=== PATIENT | male | born 1985 | race Caucasian/White ===

== ENCOUNTER 2018-06-16 18:57 | Emergency (ER) | payer SELFPAY ==
[~2018-06-16] VITALS: Ht 180.3 cm; Wt 83.9 kg
[~2018-06-16 18:57] MED LIST: AMPH20TA2 PO; CHLR25C PO; CPR500T PO; CTLP20T PO; DEXT10TA9 PO; DIAZ10TA PO; FLUO20CA25 PO; GBPN600T PO; LORA0.5T34 PO; LORA1TAB PO; METH-290 PO; METH20CP9 PO; METR500T PO; MTHL5T PO; OMEG1CAP51 PO; ONDA-42 PO; OXYC10TA7 PO; PANT40TA2 PO; PRM25T PO; SUCR1TAB PO; SUCR1TAB36 PO; TRM50T PO; ZLP10T PO
[2018-06-16] MEDS ORDERED: FLUR30CA13 PO (19:14)
[2018-06-16] MEDS ORDERED: DEXT10TA9 PO (19:14)
[2018-06-16] MEDS ORDERED: BUPR100T7 PO (19:14)
[2018-06-16] MEDS ORDERED: CLON1TAB PO (19:14)
--- NOTE | 2018-06-16 19:32 | ED Psychosocial ---
General Chief Complaint: Detox Stated Complaint: ALCOHOL AND DRUG WITHDRAWL Nursing Triage Note: states flushed dalmane/klonipin down toilet today, wants detox. Source: patient Exam Limitations: no limitations History of Present Illness Date Seen by Provider: Jun 16, 2018 Time Seen by Provider: 19:28 Initial Comments To ER with reports of benzodiazepine withdrawal. States that he flushed his medications down the toilet today because he wants to detox. He just moved here from [place] where he is being prescribed Klonopin. He states that he was scheduled to take Klonopin 1mg twice a day but he was in fact taking upwards of 5-6 mg per day in addition to Dalmane 30 mg 3 times per day (prescribed only to take at bedtime). States that he does not regularly drink alcohol but he occasionally supplements with alcohol. His last use of the Dalmane and Klonopin was this morning. Last alcohol use was several days ago. Denies any other substance use. He is not suicidal or homicidal. Timing/Duration: constant Severity: moderate Associated Symptoms: anxiety Allergies and Home Medications Allergies Coded Allergies: diphenhydramine HCl (Verified Allergy, Severe, ANAPHYLAXIS, 10/25/12) hydroxyzine HCl (Verified Allergy, Severe, ANAPHYLAXIS, 10/25/12) hydroxyzine pamoate (Verified Allergy, Severe, ANAPHYLAXIS, 10/25/12) Penicillins (Unverified Allergy, Mild, SWELLING, 12/06/10) tramadol HCl (Unverified Allergy, Mild, RASH, 12/06/10) hydroxyzine (Unverified Allergy, Unknown, 05/19/15) ketorolac (Unverified Allergy, Unknown, 05/19/15) ketorolac tromethamine (Unverified Allergy, Unknown, 04/17/11) tramadol (Unverified Allergy, Unknown, 05/19/15) Patient Home Medication List Home Medication List Reviewed: Yes Review of Systems Constitutional: see HPI, malaise Respiratory: no symptoms reported Cardiovascular: no symptoms reported Genitourinary: no symptoms reported Musculoskeletal: no symptoms reported Skin: no symptoms reported Psychiatric/Neurological: See HPI, Anxiety Past Jqhrhph-Yhfvvo-Vhtpge Hx Patient Social History Alcohol Use: Occasionally Uses Number of Drinks Today: 1 Alcohol Beverage of Choice: Beer Recreational Drug Use: Yes Drug of Choice: klonipin, dalmane Smoking Status: Current Someday Smoker Type Used: Cigarettes 2nd Hand Smoke Exposure: Yes Recent Foreign Travel: No Contact w/Someone Who Travel: No Recent Infectious Disease Expo: No Recent Hopitalizations: No Immunizations Up To Date Tetanus Booster (TDap): Less than 5yrs PED Vaccines UTD: Yes Date of Pneumonia Vaccine: Dec 17, 2014 Date of Influenza Vaccine: Dec 17, 2014 Seasonal Allergies Seasonal Allergies: No Past Medical History Surgeries: Yes Abdominal, Appendectomy, Gallbladder Respiratory: No Cardiac: Yes (tachycardia) Neurological: No Reproductive Disorders: No Sexually Transmitted Disease: No HIV/AIDS: No Genitourinary: No Gastrointestinal: Yes (Gastritis) Gastroesophageal Reflux, Pancreatitis Musculoskeletal: No Endocrine: No HEENT: No Cancer: No Psychosocial: Yes ([place] , prior alcohol abuse) Anxiety, PTSD, Depression Integumentary: No Blood Disorders: No Adverse Reaction/Blood Tranf: No Family Medical History Diabetes mellitus G8 BROTHER No Pertinent Family Hx Physical Exam Vital Signs - First Documented 06/16/18 19:02 Temp 98.7 Pulse 129 Resp 20 B/P (MAP) 145/88 (107) Pulse Ox 99 O2 Delivery Room Air Capillary Refill : Less Than 3 Seconds Height, Weight, BMI Height: 5'11.00" Weight: 185lbs. 0oz. 83.404918as; 22.03 BMI Method:Stated General Appearance: WD/WN, no apparent distress, other (tachycardic. Cooperative.) HEENT: PERRL/EOMI, normal ENT inspection Neck: non-tender, full range of motion Respiratory: no respiratory distress, no accessory muscle use Cardiovascular: tachycardia Gastrointestinal: normal bowel sounds, non tender, soft Neurologic/Psychiatric: alert, normal mood/affect, oriented x 3 Appearance/Memory: appropriate appearance, appropriate insight Thoughts/Hallucinations: normal thought pattern, no apparent hallucination Skin: normal color, warm/dry Progress/Results/Core Measures Results/Orders Lab Results Laboratory Tests Test 06/16/18 19:15 06/16/18 19:20 Range/Units Urine Color YELLOW Urine Clarity CLEAR Urine pH 6 5-9 Urine Specific [place] 1.025 H 1.016-1.022 Urine Protein 1+ H NEGATIVE Urine Glucose (UA) NEGATIVE NEGATIVE Urine Ketones 1+ H NEGATIVE Urine Nitrite NEGATIVE NEGATIVE Urine Bilirubin NEGATIVE NEGATIVE Urine Urobilinogen NORMAL NORMAL MG/DL Urine Leukocyte Esterase NEGATIVE NEGATIVE Urine RBC (Auto) NEGATIVE NEGATIVE Urine RBC NONE /HPF Urine WBC RARE /HPF Urine Crystals NONE /LPF Urine Bacteria NEGATIVE /HPF Urine Casts NONE /LPF Urine Mucus SMALL H /LPF Urine Culture Indicated NO Urine Opiates Screen NEGATIVE NEGATIVE Urine Oxycodone Screen NEGATIVE NEGATIVE Urine Methadone Screen NEGATIVE NEGATIVE Urine Propoxyphene Screen NEGATIVE NEGATIVE Urine Barbiturates Screen NEGATIVE NEGATIVE Ur Tricyclic Antidepressants Screen NEGATIVE NEGATIVE Urine Phencyclidine Screen NEGATIVE NEGATIVE Urine Amphetamines Screen POSITIVE H NEGATIVE Urine Methamphetamines Screen NEGATIVE NEGATIVE Urine Benzodiazepines Screen POSITIVE H NEGATIVE Urine Cocaine Screen NEGATIVE NEGATIVE Urine Cannabinoids Screen POSITIVE H NEGATIVE White Blood Count 5.0 4.3-11.0 10^3/uL Red Blood Count 4.90 4.35-5.85 10^6/uL Hemoglobin 13.5 13.3-17.7 G/DL Hematocrit 40 40-54 % Mean Corpuscular Volume 82 80-99 FL Mean Corpuscular Hemoglobin 28 25-34 PG Mean Corpuscular Hemoglobin Concent 34 32-36 G/DL Red Cell Distribution Width 15.1 H 10.0-14.5 % Platelet Count 388 130-400 10^3/uL Mean Platelet Volume 9.0 7.4-10.4 FL Neutrophils (%) (Auto) 47 42-75 % Lymphocytes (%) (Auto) 34 12-44 % Monocytes (%) (Auto) 9 0-12 % Eosinophils (%) (Auto) 9 0-10 % Basophils (%) (Auto) 1 0-10 % Neutrophils # (Auto) 2.3 1.8-7.8 X 10^3 Lymphocytes # (Auto) 1.7 1.0-4.0 X 10^3 Monocytes # (Auto) 0.4 0.0-1.0 X 10^3 Eosinophils # (Auto) 0.4 H 0.0-0.3 10^3/uL Basophils # (Auto) 0.1 0.0-0.1 10^3/uL Sodium Level 144 135-145 MMOL/L Potassium Level 3.8 3.6-5.0 MMOL/L Chloride Level 109 H 98-107 MMOL/L Carbon Dioxide Level 20 L 21-32 MMOL/L Anion Gap 15 H 5-14 MMOL/L Blood Urea Nitrogen 9 7-18 MG/DL Creatinine 1.02 0.60-1.30 MG/DL Estimat Glomerular Filtration Rate > 60 BUN/Creatinine Ratio 9 Glucose Level 91 70-105 MG/DL Calcium Level 9.0 8.5-10.1 MG/DL Corrected Calcium 8.5-10.1 MG/DL Total Bilirubin 0.3 0.1-1.0 MG/DL Aspartate Amino Transf (AST/SGOT) 26 5-34 U/L Alanine Aminotransferase (ALT/SGPT) 32 0-55 U/L Alkaline Phosphatase 116 40-136 U/L Total Protein 8.1 6.4-8.2 GM/DL Albumin 4.9 H 3.2-4.5 GM/DL Acetaminophen Level < 10 L 10-30 UG/ML Serum Alcohol 122 H <10 MG/DL My Orders Orders - LEXIS HASTINGS APRN Cbc With Automated Diff (06/16/18 19:15) Ekg Tracing (06/16/18 19:15) Comprehensive Metabolic Panel (06/16/18 19:15) Ua Culture If Indicated (06/16/18 19:15) Drug Screen Stat (Urine) (06/16/18 19:15) Alcohol (06/16/18 19:38) Acetaminophen (06/16/18 19:38) Olanzapine Orally Dissolve Tab (Zyprexa (06/16/18 20:15) Diazepam Tablet (Valium Tablet) (06/16/18 20:30) Vital Signs/I&O 06/16/18 19:02 Temp 98.7 Pulse 129 Resp 20 B/P (MAP) 145/88 (107) Pulse Ox 99 O2 Delivery Room Air Blood Pressure Mean: 107 Departure Communication (Admissions) 1946-despite his report that he just moved here from [place], he has a number of encounters here in the emergency room, at least 10 of which are for alcoholism and substance abuse (since 2006). I do question the sincerity of his intent to quit given this information and whether he truly flushed his medications down the toilet this morning or simply ran out of them. I offered him non-benzodiazepine medications for his anxiety management such as Haldol or Zyprexa and he states he has an adverse reaction to both of those. He states that the only thing works is benzodiazepine. This makes me more suspicious of his intent to quit. He now states that he is suicidal and doesn't trust himself to go home without attempting to end his life. [facility] does have a mental health bed but it is unclear whether or not he will qualify for it with an elevated serum alcohol level. [facility] 2217- I spoke with Dr. Burger, psychiatrist at [facility] who has graciously accepted the patient, does recommend Valium 20 mg by mouth due to the tachycardia of 120s on arrival which may represent getting status of autonomic instability. However this time after a meal tray only, the patient has had a heart rate of 104 and blood pressure 120/89.. He's been cooperative Impression Primary Impression: Benzodiazepine withdrawal Qualified Codes: F13.230 - Sedative, hypnotic or anxiolytic dependence with withdrawal, uncomplicated Additional Impression: Suicidal ideation Disposition: 01 HOME, SELF-CARE Condition: Stable Departure-Patient Inst. Referrals: NO,LOCAL PHYSICIAN (PCP) Primary Care Physician DAVID SOLANO MD Copy Copies To 1: DAVID SOLANO MD, PETER J APRN Jun 16, 2018 19:32
[2018-06-16 19:36] LABS: BASOPHILS # (AUTO) 0.1 10^3/uL (0.0-0.1); BASOPHILS % (AUTO) 1 % (0-10); EOSINOPHILS # (AUTO) 0.4 10^3/uL (0.0-0.3); EOSINOPHILS % (AUTO) 9 % (0-10); HEMATOCRIT 40 % (40-54); HEMOGLOBIN 13.5 G/DL (13.3-17.7); LYMPHOCYTES # (AUTO) 1.7 X 10^3 (1.0-4.0); LYMPHOCYTES % (AUTO) 34 % (12-44); MEAN CORPUSCULAR HEMOGLOBIN 28 PG (25-34); MEAN CORPUSCULAR HGB CONC 34 G/DL (32-36); MEAN CORPUSCULAR VOLUME 82 FL (80-99); MONOCYTES # (AUTO) 0.4 X 10^3 (0.0-1.0); MONOCYTES % (AUTO) 9 % (0-12); NEUTROPHILS # (AUTO) 2.3 X 10^3 (1.8-7.8); NEUTROPHILS % (AUTO) 47 % (42-75); PLATELET COUNT 388 10^3/uL (130-400); RED CELL DISTRIBUTION WIDTH 15.1 % (10.0-14.5)
[2018-06-16 19:38] LABS: BILIRUBIN,URINE NEGATIVE (NEGATIVE); CLARITY,URINE CLEAR; COLOR,URINE YELLOW; GLUCOSE, URINE (UA) NEGATIVE (NEGATIVE); KETONES,URINE 1+ (NEGATIVE); LEUKOCYTE ESTERASE ,URINE NEGATIVE (NEGATIVE); NITRITE,URINE NEGATIVE (NEGATIVE); PH,URINE 6 (5-9); PROTEIN,URINE 1+ (NEGATIVE); UROBILINOGEN,URINE NORMAL (NORMAL)
[2018-06-16 19:46] LABS: BACTERIA,URINE NEGATIVE /HPF; WBC,URINE RARE /HPF
[2018-06-16 19:51] LABS: AMPHETAMINE SCREEN, URINE POSITIVE (NEGATIVE); BARBITURATE SCREEN URINE NEGATIVE (NEGATIVE); BENZODIAZEPINES SCREEN URINE POSITIVE (NEGATIVE); CANNABINOID SCREEN, URINE POSITIVE (NEGATIVE); COCAINE SCREEN URINE NEGATIVE (NEGATIVE); METHADONE STAT NEGATIVE (NEGATIVE); METHAMPHETAMINE SCREEN URINE S NEGATIVE (NEGATIVE); OPIATE SCREEN URINE NEGATIVE (NEGATIVE); OXYCODONE STAT NEGATIVE (NEGATIVE); PROPOXYPHENE STAT NEGATIVE (NEGATIVE); TRICYCLIC ANTIDEPRESSANTS SCRE NEGATIVE (NEGATIVE)
[2018-06-16 20:02] LABS: ALANINE AMINOTRANSFERASE 32 U/L (0-55); ALBUMIN 4.9 GM/DL (3.2-4.5); ALKALINE PHOSPHATASE 116 U/L (40-136); BILIRUBIN,TOTAL 0.3 MG/DL (0.1-1.0); BUN/CREATININE RATIO 9; CARBON DIOXIDE 20 MMOL/L (21-32); CHLORIDE 109 MMOL/L (98-107); CREATININE SERUM 1.02 MG/DL (0.60-1.30); GFR ESTIMATED > 60; GLUCOSE 91 MG/DL (70-105); POTASSIUM 3.8 MMOL/L (3.6-5.0); SODIUM 144 MMOL/L (135-145); TOTAL PROTEIN 8.1 GM/DL (6.4-8.2)
--- NOTE | 2018-06-16 20:10 | NUR ---
pt now states he feels suicidal. pt placed in gown, personal belongings removed from room.
[2018-06-16] MEDS ORDERED: OLANZapine 5 MG ODT (ZyPREXA ZYDIS) PO ONE (20:15)
[2018-06-16] MEDS ORDERED: DIAZEPAM 2 MG (VALIUM) TAB PO PRN (20:30)
[2018-06-16 20:32] LABS: ACETAMINOPHEN < 10 UG/ML (10-30)
[2018-06-16] MEDS ORDERED: DIAZEPAM 5 MG (VALIUM) TABLET PO SCH (22:30)
[2018-06-16 22:40] VITALS: BP 126/79
== END 2018-06-16 22:51 ==
LOC: EDUNIT# 18:57 → ER 18:59
DX: F13.230 Sedative, hypnotic or anxiolytic dependence with withdrawal, uncomplicated (principal); R45.851 Suicidal ideations; K21.9 Gastro-esophageal reflux disease without esophagitis; F41.9 Anxiety disorder, unspecified; F43.10 Post-traumatic stress disorder, unspecified; F32.9 Major depressive disorder, single episode, unspecified; F17.210 Nicotine dependence, cigarettes, uncomplicated; Z90.49 Acquired absence of other specified parts of digestive tract; Z90.89 Acquired absence of other organs; Z87.19 Personal history of other diseases of the digestive system; Z88.8 Allergy status to other drugs, medicaments and biological substances; Z88.0 Allergy status to penicillin; Z88.4 Allergy status to anesthetic agent; Z88.6 Allergy status to analgesic agent
CPT/HCPCS: 36415; 80053; 80306; 80320; 80329; 81000; 85025; 93005

== ENCOUNTER 2020-12-30 21:29 | Emergency (ER) | payer SELFPAY ==
[~2020-12-30] VITALS: Ht 180 cm; Wt 83.0 kg
[~2020-12-30 21:29] MED LIST changes: +BUPR100T7 PO; +CLON1TAB PO; +FLUR30CA13 PO
[2020-12-30 22:14] VITALS: BP 157/109
[2020-12-30 22:28] LABS: BILIRUBIN,URINE NEGATIVE (NEGATIVE); COLOR,URINE YELLOW; GLUCOSE, URINE (UA) NEGATIVE (NEGATIVE); KETONES,URINE NEGATIVE (NEGATIVE); LEUKOCYTE ESTERASE ,URINE NEGATIVE (NEGATIVE); NITRITE,URINE NEGATIVE (NEGATIVE); PROTEIN,URINE TRACE (NEGATIVE)
[2020-12-30] MEDS ORDERED: ONDANSETRON 4 MG/2 ML (SDV) Z0FRAN IVP ONE (22:30)
[2020-12-30] MEDS ORDERED: NS IV 1000 ML 1,000 ML IV SCH ×2 (22:30)
[2020-12-30] MEDS ORDERED: PANTOPRAZOLE 40 MG (PROTONIX) VIAL IV ONE (22:30)
[2020-12-30 22:32] LABS: BASOPHILS % (AUTO) 1 % (0-10); EOSINOPHILS # (AUTO) 0.5 10^3/uL (0.0-0.3); EOSINOPHILS % (AUTO) 8 % (0-10); HEMATOCRIT 35 % (40-54); HEMOGLOBIN 11.1 g/dL (13.3-17.7); LYMPHOCYTES # (AUTO) 2.3 10^3/uL (1.0-4.0); LYMPHOCYTES % (AUTO) 39 % (12-44); MEAN CORPUSCULAR HEMOGLOBIN 26 pg (25-34); MEAN CORPUSCULAR HGB CONC 32 g/dL (32-36); MEAN CORPUSCULAR VOLUME 81 fL (80-99); MEAN PLATELET VOLUME 8.9 fL (9.0-12.2); MONOCYTES # (AUTO) 0.6 10^3/uL (0.0-1.0); MONOCYTES % (AUTO) 11 % (0-12); NEUTROPHILS # (AUTO) 2.4 10^3/uL (1.8-7.8); NEUTROPHILS % (AUTO) 41 % (42-75); PLATELET COUNT 217 10^3/uL (130-400); WHITE BLOOD COUNT 5.9 10^3/uL (4.3-11.0)
[2020-12-30 22:34] LABS: BACTERIA,URINE NEGATIVE /HPF; CLARITY,URINE CLEAR; SQUAMOUS EPITHELIAL CELL,UR RARE /HPF
[2020-12-30 22:38] LABS: AMPHETAMINE SCREEN, URINE POSITIVE (NEGATIVE); BARBITURATE SCREEN URINE NEGATIVE (NEGATIVE); BENZODIAZEPINES SCREEN URINE POSITIVE (NEGATIVE); CANNABINOID SCREEN, URINE POSITIVE (NEGATIVE); COCAINE SCREEN URINE NEGATIVE (NEGATIVE); METHADONE STAT NEGATIVE (NEGATIVE); METHAMPHETAMINE SCREEN URINE S POSITIVE (NEGATIVE); OPIATE SCREEN URINE NEGATIVE (NEGATIVE); OXYCODONE STAT NEGATIVE (NEGATIVE); PROPOXYPHENE STAT NEGATIVE (NEGATIVE); TRICYCLIC ANTIDEPRESSANTS SCRE NEGATIVE (NEGATIVE)
[2020-12-30 22:43] LABS: ALBUMIN 4.7 GM/DL (3.2-4.5); CHLORIDE 109 MMOL/L (98-107); POTASSIUM 3.5 MMOL/L (3.6-5.0); SODIUM 144 MMOL/L (135-145)
[2020-12-30 22:44] LABS: AMYLASE 61 U/L (25-125); CALCIUM 8.9 MG/DL (8.5-10.1); INR 0.9 (0.8-1.4); PROTHROMBIN TIME PATIENT 12.9 SEC (12.2-14.7)
[2020-12-30 22:45] LABS: GLUCOSE 99 MG/DL (70-105)
[2020-12-30 22:46] LABS: CARBON DIOXIDE 17 MMOL/L (21-32); TOTAL PROTEIN 8.3 GM/DL (6.4-8.2)
[2020-12-30 22:47] LABS: BILIRUBIN,TOTAL 0.8 MG/DL (0.1-1.0)
[2020-12-30 22:49] LABS: ALKALINE PHOSPHATASE 123 U/L (40-136); CREATININE SERUM 0.91 MG/DL (0.60-1.30); GFR ESTIMATED 96
[2020-12-30 22:50] LABS: BUN/CREATININE RATIO 13
[2020-12-30 22:52] LABS: ALANINE AMINOTRANSFERASE 51 U/L (0-55); MAGNESIUM 2.2 MG/DL (1.6-2.4)
[2020-12-30 22:53] LABS: LIPASE 23 U/L (8-78)
[2020-12-30] MEDS ORDERED: NS 100 ML (IVPB) BAG IV ONE (23:45)
[2020-12-30] MEDS ORDERED: IOHEXOL 350 MG/ML 100 ML (OMNIPAQUE 350) VIAL IV ONE (23:45)
[2020-12-31] MEDS ORDERED: ONDANSETRON 4 MG/2 ML (SDV) Z0FRAN IVP ONE
--- NOTE | 2020-12-31 05:11 | Diagnostic Imaging Report ---
INDICATION: Abdominal pain Single PA view of the chest is obtained. COMPARISON: No previous study is available for comparison at this time. FINDINGS: Heart size and pulmonary vasculature are within normal limits, and the lungs are clear, bilaterally. IMPRESSION: Unremarkable chest. Dictated by: Dictated on workstation # [id number]
--- NOTE | 2020-12-31 05:17 | Diagnostic Imaging Report ---
PROCEDURE: CT abdomen and pelvis with contrast. TECHNIQUE: Multiple contiguous axial images were obtained through the abdomen and pelvis after administration of intravenous contrast. Auto Exposure Controls were utilized during the CT exam to meet ALARA standards for radiation dose reduction. All CT scans use one or more of the following dose optimizing techniques: automated exposure control, MA and/or KvP adjustment based on patient size and exam type or iterative reconstruction. INDICATION: Epigastric pain COMPARISON: 05/19/2015 There is mild low-density throughout the liver indicating steatosis. Gallbladder surgically absent without evidence of biliary ductal dilatation. There is no evidence of pancreatic, adrenal gland or splenic lesion and kidneys have a normal appearance, bilaterally. There is mild mural thickening within proximal small bowel which may represent enteritis. No free fluid is seen within the abdomen or pelvis and there is no evidence of pathologically enlarged adenopathy. Partially opacified urinary bladder is unremarkable in appearance. IMPRESSION: Mild mural thickening of proximal small bowel loops may reflect enteritis and clinical correlation is recommended. There is also hepatic steatosis in patient post cholecystectomy and appendectomy. Dictated by: Dictated on workstation # [id number]
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
== END 2020-12-31 00:20 | disposition left against medical advice (07) ==
LOC: EDUNIT# 21:29 → ER 21:35
DX: S05.11XA Contusion of eyeball and orbital tissues, right eye, initial encounter (principal); K92.0 Hematemesis; F19.10 Other psychoactive substance abuse, uncomplicated; F10.129 Alcohol abuse with intoxication, unspecified; F32.9 Major depressive disorder, single episode, unspecified; F41.9 Anxiety disorder, unspecified; Z79.899 Other long term (current) drug therapy; Y04.8XXA Assault by other bodily force, initial encounter
CPT/HCPCS: 71045; 74177; 80053; 80306; 81000; 82150; 83690; 83735; 85025; 85610; 85730; 93041; 99284; G0480; 36415; 80320; 96361; 96374; 96375; 96376

== ENCOUNTER 2020-12-31 04:33 | Emergency (ER) | payer SELFPAY ==
[~2020-12-31] VITALS: Ht 180.3 cm; Wt 83.0 kg
[2020-12-31] MEDS ORDERED: ONDANSETRON 4 MG/2 ML (SDV) Z0FRAN IVP ONE (04:45)
[2020-12-31] MEDS ORDERED: NS IV 1000 ML 1,000 ML IV SCH (04:45)
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
[2020-12-31 05:00] LABS: BASOPHILS % (AUTO) 1 % (0-10); EOSINOPHILS # (AUTO) 0.4 10^3/uL (0.0-0.3); EOSINOPHILS % (AUTO) 9 % (0-10); HEMATOCRIT 33 % (40-54); HEMOGLOBIN 10.3 g/dL (13.3-17.7); LYMPHOCYTES # (AUTO) 1.6 10^3/uL (1.0-4.0); LYMPHOCYTES % (AUTO) 39 % (12-44); MEAN CORPUSCULAR HEMOGLOBIN 26 pg (25-34); MEAN CORPUSCULAR HGB CONC 32 g/dL (32-36); MEAN CORPUSCULAR VOLUME 82 fL (80-99); MEAN PLATELET VOLUME 8.9 fL (9.0-12.2); MONOCYTES # (AUTO) 0.5 10^3/uL (0.0-1.0); MONOCYTES % (AUTO) 12 % (0-12); NEUTROPHILS # (AUTO) 1.6 10^3/uL (1.8-7.8); NEUTROPHILS % (AUTO) 39 % (42-75); PLATELET COUNT 194 10^3/uL (130-400); WHITE BLOOD COUNT 4.1 10^3/uL (4.3-11.0)
[2020-12-31 05:09] LABS: ALBUMIN 4.2 GM/DL (3.2-4.5); CHLORIDE 108 MMOL/L (98-107); POTASSIUM 3.6 MMOL/L (3.6-5.0); SODIUM 140 MMOL/L (135-145)
[2020-12-31 05:10] LABS: CALCIUM 8.1 MG/DL (8.5-10.1)
[2020-12-31 05:12] LABS: GLUCOSE 92 MG/DL (70-105); TOTAL PROTEIN 7.4 GM/DL (6.4-8.2)
[2020-12-31 05:13] LABS: BILIRUBIN,TOTAL 0.8 MG/DL (0.1-1.0); CARBON DIOXIDE 19 MMOL/L (21-32)
[2020-12-31 05:15] LABS: ALKALINE PHOSPHATASE 118 U/L (40-136); CREATININE SERUM 0.88 MG/DL (0.60-1.30); GFR ESTIMATED 100
[2020-12-31 05:16] LABS: BUN/CREATININE RATIO 13
[2020-12-31 05:18] LABS: ALANINE AMINOTRANSFERASE 47 U/L (0-55)
[2020-12-31 05:23] LABS: ACETAMINOPHEN < 10 UG/ML (10-30)
[2020-12-31 05:59] LABS: BILIRUBIN,URINE NEGATIVE (NEGATIVE); CLARITY,URINE CLEAR; COLOR,URINE YELLOW; GLUCOSE, URINE (UA) NEGATIVE (NEGATIVE); KETONES,URINE NEGATIVE (NEGATIVE); LEUKOCYTE ESTERASE ,URINE NEGATIVE (NEGATIVE); NITRITE,URINE NEGATIVE (NEGATIVE); PROTEIN,URINE NEGATIVE (NEGATIVE)
[2020-12-31 06:08] LABS: BACTERIA,URINE NEGATIVE /HPF
[2020-12-31 06:19] LABS: AMPHETAMINE SCREEN, URINE POSITIVE (NEGATIVE); BARBITURATE SCREEN URINE NEGATIVE (NEGATIVE); BENZODIAZEPINES SCREEN URINE POSITIVE (NEGATIVE); CANNABINOID SCREEN, URINE POSITIVE (NEGATIVE); COCAINE SCREEN URINE NEGATIVE (NEGATIVE); METHADONE STAT NEGATIVE (NEGATIVE); METHAMPHETAMINE SCREEN URINE S POSITIVE (NEGATIVE); OPIATE SCREEN URINE NEGATIVE (NEGATIVE); OXYCODONE STAT NEGATIVE (NEGATIVE); PROPOXYPHENE STAT NEGATIVE (NEGATIVE); TRICYCLIC ANTIDEPRESSANTS SCRE NEGATIVE (NEGATIVE)
[2020-12-31] MEDS ORDERED: fentaNYL INJ 100 MCG/2 ML AMP IVP STA (06:29)
[2020-12-31 08:52] VITALS: BP 127/93
== END 2020-12-31 08:52 | disposition short-term general hospital (02) ==
LOC: EDUNIT# 04:33 → ER 04:34
DX: R10.10 Upper abdominal pain, unspecified (principal); K92.0 Hematemesis; F10.20 Alcohol dependence, uncomplicated; F15.10 Other stimulant abuse, uncomplicated; F12.10 Cannabis abuse, uncomplicated; F41.9 Anxiety disorder, unspecified; F32.9 Major depressive disorder, single episode, unspecified; F17.210 Nicotine dependence, cigarettes, uncomplicated; Y90.0 Blood alcohol level of less than 20 mg/100 ml; Z88.5 Allergy status to narcotic agent; Z90.49 Acquired absence of other specified parts of digestive tract; Z87.828 Personal history of other (healed) physical injury and trauma; Z79.899 Other long term (current) drug therapy; Z20.822 Contact with and (suspected) exposure to COVID-19
CPT/HCPCS: 80053; 80306; 81000; 85025; 87636; 93041; 99285; G0480 ×2; 36415; 80320; 80329